=== PATIENT | male | born 2000 | race African-American/Black ===

== ENCOUNTER 2021-09-13 19:12 | Emergency (ER) | payer OTHER ==
[~2021-09-13] VITALS: Ht 175.3 cm; Wt 89.2 kg
[2021-09-13 19:30] VITALS: BP 128/57
[2021-09-13] MEDS ORDERED: DIPHTH,PERTUSS(ACELL),TET TOX 0.5 ML DISP.SYRIN. VAX IM ONE (20:00)
[2021-09-13] MEDS ORDERED: IBUPROFEN 400 MG TABLET. PO ONE (20:00)
--- NOTE | 2021-09-13 20:02 | PHYS DOC ---
Past Medical History Past Surgical History: Other Additional Past Surgical Histo: LEFT HAND Adult General Chief Complaint Chief Complaint: ABRASION HPI HPI 21-year-old male who is otherwise healthy presents requesting clearance to return to work. Patient sustained a small abrasion to the dorsal aspect of his left forearm this morning at about 5 AM. He was concerned about it and called into work but now requires a clearance note to return to work. He states the abrasion is not bothering him and he does not really have any pain there of any significance. He denies other injury during the episode. Tetanus not up-to-date. Review of Systems Review of Systems A 12 point review of systems was completed and was negative except where noted in HPI above. Allergies Allergies Allergies Coded Allergies Type Severity Reaction Last Updated Verified No Known Drug Allergies 09/13/21 No Physical Exam Physical Exam 21-year-old male appearing nontoxic and in no acute distress. Head is normocephalic and atraumatic. Neck is supple and nontender. Oropharynx is moist. Lungs are clear to auscultation at all stations. There is a normal S1 a nd S2 without rubs or gallops and capillary refill is appropriate, less than 2 seconds globally. Abdomen is soft, nontender and nondistended. Skin is warm and dry without cyanosis, clubbing or edema. Psychiatrically, the patient demonstrates appropriate mood and affect and is alert. Evaluation of the left upper extremity reveals a 2 cm superficial abrasion to the distal dorsal forearm without surrounding erythema or tenderness to palpation. No discomfort with ranging of any joint of the left upper extremity. Left upper extremity is neurovascularly intact distally with strength out of 5, sensation intact light touch in median, radial and ulnar nerve distributions, radial pulse 2+, capillary refill less than 2 seconds, hand warm and well-perfused. Current Patient Data Vital Signs Vital Signs Date Time Temp Pulse Resp B/P (MAP) Pulse Ox O2 Delivery O2 Flow Rate FiO2 09/13/21 19:30 98.5 71 18 128/57 (80) 97 Room Air 98.5 EKG EKG [] Radiology/Procedures Radiology/Procedures [] Course & Med Decision Making Course & Med Decision Making Will update tetanus, give a dose of ibuprofen and discharge home with requested work clearance. Patient understands that if he feels worse instead of better or develops other new symptoms of concern that he should return to the emergency department immediately for reevaluation. All questions are answered. Dragon Disclaimer Dragon Disclaimer This electronic medical record was generated, in whole or in part, using a voice recognition dictation system. Departure Departure Impression: Primary Impression: Abrasion of left forearm, initial encounter Disposition: HOME / SELF CARE / HOMELESS Condition: IMPROVED Patient Instructions: Abrasions Additional Instructions: Follow-up very closely with your primary care doctor in the office in the next 2 to 4 days for reevaluation of your symptoms and a discussion of next best steps in care. Take 600 mg of ibuprofen (three 200 mg pills) every 6 hours as needed for discomfort, with food to prevent stomach upset. You may apply Neosporin twice a day to prevent infection. Return to the emergency department right away for worsening symptoms of any kind or with any other new symptoms of concern. GEORGE CAMACHO MD Sep 13, 2021 20:02
== END 2021-09-13 20:23 | disposition home or self-care (01) ==
LOC: ER 19:12
DX: S50.812A Abrasion of left forearm, initial encounter (principal); X58.XXXA Exposure to other specified factors, initial encounter; Y93.89 Activity, other specified; Y92.89 Other specified places as the place of occurrence of the external cause; Y99.8 Other external cause status
CPT/HCPCS: 90471; 90715; 99283-25